=== PATIENT | male | born 1945 | race Caucasian/White ===

== ENCOUNTER 2019-05-04 14:51 | Emergency (ER) | payer MEDICARE, OTHER ==
[~2019-05-04] VITALS: Ht 165.1 cm; Wt 72.6 kg
[2019-05-04 17:25] VITALS: BP 129/68
== END 2019-05-04 17:36 | disposition home or self-care (01) ==
LOC: ER 14:54
DX: M54.41 Lumbago with sciatica, right side (principal)
CPT/HCPCS: 72131-TC; 72170-TC